=== PATIENT | male | born 1965 | race Caucasian/White ===

== ENCOUNTER 2022-10-01 12:42 | Emergency (ER) | payer SELFPAY ==
[2022-10-01] MEDS ORDERED: DIPH,PERTUS(ACELL)TETVAC-LF 0.5 ML VIAL IM ONE (12:49)
[2022-10-01] MEDS ORDERED: SODIUM CHLORIDE 0.9% 1,000 ML IV STA (12:49)
[2022-10-01 12:52] VITALS: TEMP 99.2
[2022-10-01 13:11] LABS: Basophils % (A) 0 %; Eosinophils # (A) 0.2 k/uL (0-0.7); Eosinophils % (A) 3 %; HCT 41.1 % (39.0-53.0); HGB 14.4 gm/dL (13.0-17.5); Lymphocytes % (A) 29 %; MCH 27.3 pg (25.0-35.0); Mean Platelet Volume 7.1; Monocytes # (A) 0.4 k/uL (0-1.0); Monocytes % (A) 5 %; Neutrophils # (A) 4.2 k/uL (1.3-7.7); Neutrophils % (A) 61 %; Platelet Count 288 k/uL (150-450); RBC 5.26 m/uL (4.30-5.90); RDW 12.7 % (11.5-15.5); WBC 6.8 k/uL (3.8-10.6)
[2022-10-01 13:26] LABS: ALT 29 U/L (4-49); AST 26 U/L (17-59); African American GFR (CKD) >90 (>60 ml/min/1.73 sqM); Albumin 4.1 g/dL (3.5-5.0); Alcohol <10 mg/dL; Alkaline Phosphatase 34 U/L (38-126); Anion Gap 12 mmol/L; Blood Urea Nitrogen 16 mg/dL (9-20); Calcium 9.2 mg/dL (8.4-10.2); Carbon Dioxide 23 mmol/L (22-30); Chloride 101 mmol/L (98-107); Creatine Kinase 166 U/L (55-170); Glucose 294 mg/dL (74-99); Non-African American GFR(CKD) >90 (>60 ml/min/1.73 sqM); Potassium 4.5 mmol/L (3.5-5.1); Sodium 136 mmol/L (137-145); Total Bilirubin 0.5 mg/dL (0.2-1.3); Total Protein 7.4 g/dL (6.3-8.2)
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
[2022-10-01 13:32] LABS: INR 0.9 (<1.2)
[2022-10-01 13:38] LABS: Partial Thromboplastin Time 20.8 sec (22.0-30.0)
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
[2022-10-01] MEDS ORDERED: KETOROLAC 15 MG/ML 1 ML VIAL IVP STA (14:53)
[2022-10-01 16:11] VITALS: BP 129/97; PULSE 73; RESP 18
== END 2022-10-01 16:17 | disposition home or self-care (01) ==
LOC: EC 12:42
DX: S01.01XA Laceration without foreign body of scalp, initial encounter (principal); S80.812A Abrasion, left lower leg, initial encounter; S80.811A Abrasion, right lower leg, initial encounter; S70.312A Abrasion, left thigh, initial encounter; K42.9 Umbilical hernia without obstruction or gangrene; Z23 Encounter for immunization; V03.90XA Pedestrian on foot injured in collision with car, pick-up truck or van, unspecified whether traffic or nontraffic accident, initial encounter; Y92.410 Unspecified street and highway as the place of occurrence of the external cause
CPT/HCPCS: 86900; 86901; 80053; 82550; 85025; 85610; 85730; 86850; 80320; 73562; 73590; 72170; 73552; 71045; 72125; 70450; 90715; 12002; 99285; 96374; 96361; 90471; J1885; 36415